=== PATIENT | male | born 1955 | race Caucasian/White ===

== ENCOUNTER 2019-06-09 08:56 | Emergency (ER) | payer MEDICARE ==
[2019-06-09] MEDS ORDERED: CLINDAMYCIN 900 MG (PMX) 50 ML IVPB (10:10)
[2019-06-09 10:32] LABS: ADD MAN DIFF? NO
[2019-06-09 10:36] LABS: BASOPHIL # 0.1 10^3/ul (0.0-0.1); BASOPHILS % 0.3 % (0.0-2.0); EOSINOPHILS % 0.1 % (0.0-7.0); HEMATOCRIT 51.3 % (42.0-52.0); HEMOGLOBIN 17.6 g/dl (14.0-18.0); LYMPHOCYTES # 0.6 10^3/ul (0.8-2.9); LYMPHOCYTES % 3.5 % (15.0-51.0); MEAN CORPUSCULAR HEMOGLOBIN 31.3 pg (29.0-33.0); MEAN CORPUSCULAR HGB CONC 34.3 g/dl (32.0-37.0); MEAN CORPUSCULAR VOLUME 91.1 fl (82.0-101.0); MEAN PLATELET VOLUME 9.2 fl (7.4-10.4); MONOCYTE # 0.8 10^3/ul (0.3-0.9); MONOCYTES % 4.2 % (0.0-11.0); NEUTROPHIL # 16.7 10^3/ul (1.6-7.5); NEUTROPHILS % 91.2 % (39.0-77.0); PLATELET COUNT 152 10^3/UL (140-415); RED BLOOD COUNT 5.63 10^6/ul (4.70-6.10); RED CELL DISTRIBUTION WIDTH 13.2 % (11.5-14.5)
[2019-06-09 10:36] LABS: WHITE BLOOD COUNT 18.2 10^3/ul (4.8-10.8)
[2019-06-09] MEDS: SODIUM CHLORIDE 0.9% 1L BAG IV* (10:43)
[2019-06-09] MEDS: PIPER-TAZO 3.375 GM IV (PMX) 100 ML IVPB (10:44)
[2019-06-09] MEDS: KETOROLAC 15 MG INJ IV (10:44)
[2019-06-09] MEDS: ACETAMINOPHEN 500 MG TAB PO (10:44)
[2019-06-09 10:51] LABS: ALANINE AMINOTRANSFERASE 32 IU/L (13-69); ALBUMIN 4.6 g/dl (3.3-4.9); ALBUMIN/GLOBULIN RATIO 1.31; ALKALINE PHOSPHATASE 148 IU/L (42-121); ANION GAP 9 (5-13); ASPARTATE AMINO TRANSFERASE 38 IU/L (15-46); BILIRUBIN,INDIRECT 1.9 mg/dl (0-1.1); BILIRUBIN,TOTAL 1.9 mg/dl (0.2-1.3); BLOOD UREA NITROGEN 14 mg/dl (7-20); CALCIUM 9.3 mg/dl (8.4-10.2); CARBON DIOXIDE 27 mmol/L (21-31); CHLORIDE 101 mmol/L (97-110); CREATININE 1.11 mg/dl (0.61-1.24); Estimated GFR > 60 mL/min (>60); GLUCOSE 113 mg/dl (70-220); POTASSIUM 3.6 mmol/L (3.5-5.1); SODIUM 137 mmol/L (135-144); TOTAL PROTEIN 8.1 g/dl (6.1-8.1)
[2019-06-09] MEDS: VANCOMYCIN 1 GM (PMX) 250 ML IVPB (11:49)
== END 2019-06-09 14:00 | disposition home or self-care (01) ==
LOC: E/R 08:56
DX: L03.115 Cellulitis of right lower limb (principal); R65.10 Systemic inflammatory response syndrome (SIRS) of non-infectious origin without acute organ dysfunction; I10 Essential (primary) hypertension; F17.210 Nicotine dependence, cigarettes, uncomplicated
CPT/HCPCS: 36415; 80053; 83605; 85025; 87040-91; 93005; 96365; 96366; 96367; 96375; 99284-25

== ENCOUNTER 2019-06-13 18:37 | Emergency (ER) | payer MEDICARE | END 2019-06-13 19:12 | disposition home or self-care (01) | LOC: E/R 18:37 | DX: L03.115 Cellulitis of right lower limb (principal) | CPT/HCPCS: 99283 ==